=== PATIENT | female | born 1940 | race Caucasian/White ===

== ENCOUNTER 2022-09-28 11:17 | Outpatient (RCR) | payer MEDICAID, SELFPAY | END 2023-09-28 16:11 | disposition home or self-care (01) | LOC: MOW 11:17 | PROVIDERS: PCP Family Medicine; Visit Provider Family Medicine | DX: Z76.0 Encounter for issue of repeat prescription (principal) | CPT/HCPCS: S5170 ==

== ENCOUNTER 2023-06-21 12:59 | Outpatient (CLI) | payer MEDICARE, BC, SELFPAY ==
--- NOTE | 2023-06-21 13:00 | MR_ITS ---
Patient: MYRIAM LIAO Facility:?[facility] RIS Patient ID:?[id number] Site Patient ID:?[id number]. Site :?[id number] Study:?MRI-Neck Angio W/ and W/O Cont 20 CC DOATERM-06/21/2023 3:09:39 PM Ordering Physician:JONATHAN LOWE Final Report: INDICATION: Dizziness. TECHNIQUE: MRI brain: Multiplanar multisequence MR imaging prior to and following intravenous contrast. MRA head: Aggf-gh-fxycva imaging acquired. MRA neck: Ejwz-dz-szdwmh and postcontrast imaging acquired. COMPARISON: None. FINDINGS: MRI brain: Prominence of the ventricles and sulci compatible with ucnf-ey-doafbqeg diffuse cerebral volume loss. No mass effect or midline shift. Scattered and patchy FLAIR hyperintensities in the supratentorial white matter, typical for vssx-mv-htgynejz chronic microvascular ischemic changes. No pathologic intracranial enhancement. No intracranial hemorrhage or pathologic extra-axial fluid collection. No diffusion restriction to suggest acute infarction. The major arterial flow voids of the skullbase are preserved. Thinning of the ocular lenses. Minimal paranasal sinus mucosal thickening. The mastoid air cells are clear. MRA head: The internal carotid, middle cerebral, and anterior cerebral arteries are widely patent. The vertebral, basilar, and posterior cerebral arteries are widely patent. No intracranial aneurysm or high-flow vascular malformation. MRA neck: The innominate and subclavian arteries are widely patent. The common carotid arteries are widely patent. The internal carotid arteries are widely patent. The left vertebral artery is dominant. The vertebral arteries are widely patent. IMPRESSION: 1. No acute intracranial abnormality. 2. Jrvs-qa-dluzcmdz chronic microvascular ischemic changes and diffuse cerebral volume loss. 3. Widely patent cervical and intracranial vasculature. Dictated by Sebastien Escalante MD @ 06/21/2023 4:05:08 PM Signed by:?Sebastien Escalante MD @06/21/2023 4:05:08 PM (Electronic Signature)
--- NOTE | 2023-06-21 13:45 | MR_ITS ---
Patient: MYRIAM LIAO Facility:?[facility] R[facility] Patient ID:?[id number] Site Patient ID:?[id number]. Site :?[id number] Study:?MRI-Head W/ and W/O Cont 20 CC DOATERM-06/21/2023 3:06:59 PM Ordering Physician:JONATHAN LOWE Final Report: INDICATION: Dizziness. TECHNIQUE: MRI brain: Multiplanar multisequence MR imaging prior to and following intravenous contrast. MRA head: Xvwk-fh-cgzqyr imaging acquired. MRA neck: Azyu-ix-nrtlyb and postcontrast imaging acquired. COMPARISON: None. FINDINGS: MRI brain: Prominence of the ventricles and sulci compatible with lxlh-my-mtuurjmu diffuse cerebral volume loss. No mass effect or midline shift. Scattered and patchy FLAIR hyperintensities in the supratentorial white matter, typical for uhfa-ep-nwpwsqvd chronic microvascular ischemic changes. No pathologic intracranial enhancement. No intracranial hemorrhage or pathologic extra-axial fluid collection. No diffusion restriction to suggest acute infarction. The major arterial flow voids of the skullbase are preserved. Thinning of the ocular lenses. Minimal paranasal sinus mucosal thickening. The mastoid air cells are clear. MRA head: The internal carotid, middle cerebral, and anterior cerebral arteries are widely patent. The vertebral, basilar, and posterior cerebral arteries are widely patent. No intracranial aneurysm or high-flow vascular malformation. MRA neck: The innominate and subclavian arteries are widely patent. The common carotid arteries are widely patent. The internal carotid arteries are widely patent. The left vertebral artery is dominant. The vertebral arteries are widely patent. IMPRESSION: 1. No acute intracranial abnormality. 2. Grej-dy-dhqcyryl chronic microvascular ischemic changes and diffuse cerebral volume loss. 3. Widely patent cervical and intracranial vasculature. Dictated by Sebastien Escalante MD @ 06/21/2023 4:04:26 PM Signed by:?Sebastien Escalante MD @06/21/2023 4:04:26 PM (Electronic Signature)
--- NOTE | 2023-06-21 14:30 | MR_ITS ---
Patient: MYRIAM LIAO Facility:?[facility] Patient ID:?[id number] Site Patient ID:?[id number]. Site :?[id number] Study:?MRI-Head MRA W/O-06/21/2023 3:08:23 PM Ordering Physician:JONATHAN LOWE Final Report: INDICATION: Dizziness. TECHNIQUE: MRI brain: Multiplanar multisequence MR imaging prior to and following intravenous contrast. MRA head: Urbm-kl-mrbqoc imaging acquired. MRA neck: Eavh-wd-ghhofa and postcontrast imaging acquired. COMPARISON: None. FINDINGS: MRI brain: Prominence of the ventricles and sulci compatible with irvz-qq-mbsnnxzb diffuse cerebral volume loss. No mass effect or midline shift. Scattered and patchy FLAIR hyperintensities in the supratentorial white matter, typical for ejly-ku-qblupsnh chronic microvascular ischemic changes. No pathologic intracranial enhancement. No intracranial hemorrhage or pathologic extra-axial fluid collection. No diffusion restriction to suggest acute infarction. The major arterial flow voids of the skullbase are preserved. Thinning of the ocular lenses. Minimal paranasal sinus mucosal thickening. The mastoid air cells are clear. MRA head: The internal carotid, middle cerebral, and anterior cerebral arteries are widely patent. The vertebral, basilar, and posterior cerebral arteries are widely patent. No intracranial aneurysm or high-flow vascular malformation. MRA neck: The innominate and subclavian arteries are widely patent. The common carotid arteries are widely patent. The internal carotid arteries are widely patent. The left vertebral artery is dominant. The vertebral arteries are widely patent. IMPRESSION: 1. No acute intracranial abnormality. 2. Rgki-lf-kqtahuwj chronic microvascular ischemic changes and diffuse cerebral volume loss. 3. Widely patent cervical and intracranial vasculature. Dictated by Sebastien Escalante MD @ 06/21/2023 4:05:56 PM Signed by:?Sebastien Escalante MD @06/21/2023 4:05:56 PM (Electronic Signature)
== END 2023-06-21 13:00 | disposition home or self-care (01) ==
LOC: MRI 13:01
PROVIDERS: PCP Family Medicine; Visit Provider Family Medicine
DX: R42 Dizziness and giddiness (principal); I67.82 Cerebral ischemia
CPT/HCPCS: 70544; 70549; 70553; A9575

== ENCOUNTER 2023-09-29 13:02 | Outpatient (RCR) | payer MEDICAID, SELFPAY | END 2024-09-28 10:48 | disposition home or self-care (01) | LOC: MOW 13:02 | PROVIDERS: PCP Family Medicine; Visit Provider Family Medicine | DX: Z76.0 Encounter for issue of repeat prescription (principal) | CPT/HCPCS: S5170 ==

== ENCOUNTER 2025-03-16 06:57 | Outpatient (CLI) | payer BC, SELFPAY | END 2025-03-16 06:58 | disposition home or self-care (01) | LOC: AMB 03-19 15:33 | PROVIDERS: PCP Family Medicine; Visit Provider Emergency Medicine | DX: R53.1 Weakness (principal) | CPT/HCPCS: A0998 ==